=== PATIENT | male | born 1990 | race Caucasian/White ===

== ENCOUNTER 2024-08-27 09:25 | Emergency (ER) | payer MEDICAID ==
[~2024-08-27] VITALS: Ht 167.6 cm; Wt 65.8 kg
[2024-08-27] MEDS ORDERED: CHLORDIAZEPOXIDE HCL 25 MG CAPSULE ONE (10:03)
[2024-08-27] MEDS ORDERED: ONDANSETRON 4 MG/2 ML VIAL ONE (10:03)
[2024-08-27 10:05] LABS: BASOPHILS % (AUTO) 0.4 % (0.0-2.0); EOSINOPHILS % (AUTO) 0.7 % (0.0-7.0); HEMATOCRIT 45.6 % (36.7-47.1); LYMPHOCYTES # (AUTO) 1.3 K/uL (0.8-4.8); MEAN CORPUSCULAR HEMOGLOBIN 30.2 uug (23.8-33.4); MEAN CORPUSCULAR HGB CONC 33 g/dL (32.5-36.3); MEAN CORPUSCULAR VOLUME 91.5 fL (73.0-96.2); MONOCYTES # (AUTO) 0.4 K/uL (0.1-1.30); MONOCYTES % (AUTO) 7.3 % (0.0-11.0); NEUTROPHILS % (AUTO) 68.6 % (38.5-71.5); PLATELET COUNT (AUTO) 273 K/uL (152-348); RED BLOOD CELL COUNT(AUTO) 4.98 MIL/uL (4.06-5.63); RED CELL DISTRIBUTION WIDTH 14.1 % (12.1-16.2); WHITE BLOOD COUNT (AUTO) 5.8 K/uL (3.6-10.2)
[2024-08-27 10:06] LABS: DIFFERENTIAL COMMENT 1
[2024-08-27] MEDS: IV NS 1000 ML 1,000 ML IV ONE (10:09)
[2024-08-27] MEDS: ONDANSETRON 4 MG/2 ML VIAL IV ONE (10:09)
[2024-08-27] MEDS: CHLORDIAZEPOXIDE HCL 25 MG CAPSULE PO ONE (10:09)
[2024-08-27 10:12] LABS: CREATININE 0.8 mg/dL (0.6-1.3); POTASSIUM 2.9 mmol/L (3.5-5.1)
[2024-08-27 10:17] LABS: BILIRUBIN,DIRECT 0.1 mg/dL (0.0-0.2); BILIRUBIN,TOTAL 0.4 mg/dL (0.2-1.0); TOTAL PROTEIN, SERUM 6.2 g/dL (6.4-8.2)
[2024-08-27] MEDS ORDERED: MAGNESIUM SULFATE/D5W 200 ML ONE (10:38)
[2024-08-27] MEDS ORDERED: POTASSIUM BICARBONATE/CIT AC 25 MEQ TABLET.EFF ONE (10:38)
[2024-08-27] MEDS: MAGNESIUM SULFATE/D5W 100 ML IV SCH ×2 (10:50→12:58)
[2024-08-27] MEDS: POTASSIUM BICARBONATE/CIT AC 25 MEQ TABLET.EFF PO ONE (10:50)
[2024-08-27] MEDS ORDERED: PROCHLORPERAZINE EDISYLATE 10 MG/2 ML VIAL ONE (12:57)
[2024-08-27] MEDS ORDERED: MAGNESIUM SULFATE/D5W 100 ML ONE (12:57)
[2024-08-27] MEDS: PROCHLORPERAZINE EDISYLATE 10 MG/2 ML VIAL IV ONE (12:58)
[2024-08-27] MEDS ORDERED: ONDA4TAB5 PO (13:16)
[2024-08-27] MEDS ORDERED: POTA25TA7 PO (13:16)
[2024-08-27] MEDS ORDERED: CHLO25CA22 PO (13:16)
[2024-08-27 13:21] VITALS: BP 119/97; O2SAT 98
== END 2024-08-27 13:21 | disposition home or self-care (01) ==
LOC: ER 09:25
DX: F10.20 Alcohol dependence, uncomplicated (principal); E83.42 Hypomagnesemia; E87.6 Hypokalemia; E88.09 Other disorders of plasma-protein metabolism, not elsewhere classified; F41.9 Anxiety disorder, unspecified; R11.0 Nausea; R74.01 Elevation of levels of liver transaminase levels; W18.39XA Other fall on same level, initial encounter; Y93.89 Activity, other specified; Y92.89 Other specified places as the place of occurrence of the external cause; Y99.8 Other external cause status; Y90.9 Presence of alcohol in blood, level not specified
CPT/HCPCS: 99284; 96365; 96366; 96375; 96361; 80076; 80048; 83735; 85025; 36415; J3475 ×2; J2405; J0780; J7040; A4606; A4663